=== PATIENT | male | born 1975 | race Caucasian/White ===

== ENCOUNTER 2016-08-14 08:47 | Emergency (ER) | payer MEDICARE, OTHER ==
[~2016-08-14] VITALS: Ht 182.9 cm; Wt 84.3 kg
[~2016-08-14 08:47] MED LIST: ASPI81TA82 PO; IMDU30TA PO; LAMO25 PO; LEXA10TA PO; METH10TA PO; METO25TA6 PO; PROT40TA PO
[2016-08-14 08:50] VITALS: BP 145/105; PULSE 92; RESP 18; TEMP 98.4; O2SAT 96
[2016-08-14] MEDS ORDERED: LEVO50TA4 PO (09:04)
[2016-08-14] MEDS ORDERED: LAMO25TA PO (09:04)
[2016-08-14] MEDS ORDERED: METH10TA PO (09:04)
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
[2016-08-14] MEDS ORDERED: LORazepam 1 MG TAB PO ONE (09:15)
--- NOTE | 2016-08-14 13:52 | EKG ---
Date Performed: 08/14/2016 Time Performed: 09:09:39 PTAGE: 41 years EKG: Sinus rhythm NONSPECIFIC T-WAVE ABNORMALITY BORDERLINE ECG Compared to prior tracing no significant change PREVIOUS TRACING : 04/30/2014 05.23 DOCTOR: Marcie Haq Interpretating Date/Time 08/14/2016 13:45:41
== END 2016-08-14 10:08 | disposition home or self-care (01) ==
LOC: PHED 08:47
DX: F41.9 Anxiety disorder, unspecified (principal); R42 Dizziness and giddiness; I10 Essential (primary) hypertension
CPT/HCPCS: 93005; 99283